=== PATIENT | male | born 1995 | race African-American/Black ===

== ENCOUNTER 2019-08-29 22:29 | Emergency (ER) | payer OTHER ==
[~2019-08-29] VITALS: Ht 180.3 cm; Wt 133.8 kg
[2019-08-30] MEDS ORDERED: PEPCID40 MG PO (04:00)
[2019-08-30] MEDS ORDERED: ZOFRAN4 MG PO (04:00)
== END 2019-08-30 04:11 | disposition home or self-care (01) ==
LOC: ER 22:29
DX: K52.9 Noninfective gastroenteritis and colitis, unspecified (principal)